=== PATIENT | male | born 1990 | race Caucasian/White ===

== ENCOUNTER 2020-04-30 11:52 | Outpatient (REF) | payer OTHER, SELFPAY | END 2020-04-30 11:53 | disposition home or self-care (01) | LOC: HO.LAB 11:52 | PROVIDERS: Visit Provider Internal Medicine | DX: Z20.822 Contact with and (suspected) exposure to COVID-19 (principal) | CPT/HCPCS: 36415; C9803; U0003; U0005 ==

== ENCOUNTER 2020-12-30 19:16 | Emergency (ER) | payer SELFPAY ==
[2020-12-30 19:47] VITALS: BP 143/87; PULSE 85; RESP 20; TEMP 36.8; O2SAT 100; BMI 32.1
== END 2020-12-30 20:37 | disposition left against medical advice (07) ==
PROVIDERS: Emergency Provider Emergency Medicine
DX: R10.9 Unspecified abdominal pain (principal)
CPT/HCPCS: 99281; 99282

== ENCOUNTER 2021-06-17 08:44 | Emergency (ER) | payer OTHER, SELFPAY ==
--- NOTE | ~2021-06-17 | CT_ITS ---
EXAMINATION: CT ABDOMEN AND PELVIS WITH CONTRAST CLINICAL INFORMATION: Diarrhea and abdominal pain COMPARISON: Bloody diarrhea and abdominal pain TECHNIQUE: Multidetector volumetric images were obtained from the superior aspect of the liver through the pubic symphysis following administration 85 mL of Omnipaque 350 intravenous contrast. Sagittal and coronal reformatted images were obtained on the technologist's workstation. Oral contrast: Yes This CT examination was performed using dose optimization techniques as appropriate, variously including the following: *Automated exposure control *Adjustment of mA and/or kV according to patient size (this includes techniques or standardized protocols for targeted exams where dose is matched to indication/reason for exam; i.e. extremities or head) *Use of iterative reconstruction technique DLP: 923 mGy-cm FINDINGS: LUNG BASES: The visualized lung bases are unremarkable. LIVER, GALLBLADDER, AND BILIARY TREE: The liver is slightly enlarged. The liver is low in attenuation suggestive of fatty. No focal liver lesion or biliary duct dilatation. The gallbladder is unremarkable with no evidence of radiopaque gallstones, gallbladder wall thickening, or obvious pericholecystic inflammatory changes. PANCREAS: Unremarkable. SPLEEN: Unremarkable. ADRENAL GLANDS: Unremarkable. KIDNEYS AND URETERS: Small bilateral renal cysts. Largest cyst measures 1 cm in the lower pole of the left kidney. No imaging follow-up needed. The kidneys are otherwise unremarkable. BLADDER: Unremarkable. GASTROINTESTINAL TRACT: The small and large bowel are unremarkable. The appendix is unremarkable. ABDOMINAL WALL: No significant hernia is appreciated. LYMPH NODES: Normal. VASCULAR: Unremarkable. PELVIC VISCERA: Unremarkable. OSSEOUS STRUCTURES: Unremarkable. There are small sclerotic densities in the bilateral acetabulum and left proximal femur. These probably represent small bone islands. CT/CT abdomen pelvis w con IMPRESSION: Enlarged fatty liver. Otherwise unremarkable exam. Fleischner guidelines were followed.
[2021-06-17 09:27] VITALS: BP 131/85; PULSE 91; RESP 18; TEMP 36.6; O2SAT 98; BMI 31.4
[2021-06-17 09:37] LABS: MANUAL DIFF FLAG NO
[2021-06-17 09:40] LABS: Basophils Percent Auto 0.1 % (0-2); Eosinophils Absolute Auto 0.1 X10*3/uL (0.0-0.4); Eosinophils Percent Auto 1.2 % (0-4); Hematocrit 52.2 % (42.0-52.0); Hemoglobin 17.2 g/dl (14.0-18.0); Imm Gran Abs Auto 0.02 X10*3/uL (0.00-0.03); Imm Gran Pct Auto 0.2 % (0.0-0.4); Lymphocytes Absolute Auto 1.2 X10*3/uL (1.2-4.9); Lymphocytes Percent Auto 14.7 % (20-40); Mean Corpuscular Hemoglobin 27.7 pg (27.0-33.0); Mean Corpuscular Volume 83.9 fL (80.0-98.0); Mean Platelet Volume 9.2 fL (9.4-12.4); Monocytes Absolute Auto 0.9 X10*3/uL (0.1-1.2); Monocytes Percent Auto 11.2 % (2-11); Neutrophils Percent Auto 72.6 % (45-73); Platelet Count 237 X10*3/uL (160-400); Red Blood Count 6.22 X10*6/uL (4.60-5.80); Red Cell Distribution Width 12.1 % (11.0-16.0); White Blood Count 8.3 X10*3/uL (4.8-10.8)
[2021-06-17 10:01] LABS: Alanine Aminotransferase 102 U/L (0-40); Albumin Level 4.7 g/dL (3.5-5.0); Alkaline Phosphatase 72 U/L (39-117); Anion Gap 16 (12-20); Aspartate Amino Transferase 31 U/L (5-37); Bilirubin Direct 0.3 mg/dL (0.0-0.5); Bilirubin Total 1.1 mg/dL (0.0-1.0); Blood Urea Nitrogen 16 mg/dL (9-16); Calcium 9.8 mg/dL (8.4-10.2); Carbon Dioxide 20 mmol/L (22-29); Chloride 106 mmol/L (96-108); Creatinine Clr Calc Pharmacy 121.6; Estimated Glomerular Filt Rate > 60; Glucose Random 145 mg/dL (60-115); Lipase 17 U/L (8-78); Potassium 4.6 mmol/L (3.3-5.1); Sodium 137 mmol/L (135-145); Total Protein 8.4 g/dL (6.5-8.0)
--- NOTE | 2021-06-17 14:49 | ED_ITS ---
HPI - Abdominal Pain General Chief Complaint: Abdominal Pain <Sonam Can ALEC Landrum - Last Filed: 06/17/21 17:57> Stated Complaint: Abd pain <Sonam Paulsonadrianne Landrum CNP - Last Filed: 06/17/21 17:57> Time Seen by Provider: 06/17/21 14:43 <Sonam Landrum CNP - Last Filed: 06/17/21 17:57> Source: patient <Sonam Can ALEC Landrum - Last Filed: 06/17/21 17:57> Mode of arrival: ambulatory <Sonam Can ALEC Landrum - Last Filed: 06/17/21 17:57> Limitations: no limitations <Sonam Can ALEC Landrum - Last Filed: 06/17/21 17:57> History of Present Illness HPI narrative: Patient presents to the emergency department for evaluation of diarrhea and abdominal pain. He reports that he began with diarrhea associated nausea and vomiting 2 nights ago. He does report eating [employer] earlier that day which he does not typically eat and did feel that it tasted ?bad?. Last night he developed diffuse abdominal pain which is worse on the right upper quadrant and epigastrium. He is having multiple bouts of diarrhea each day, has had at least 5 already today, noticed some bright red blood yesterday but today his ears are very dark and liquidy, black/green. Denies fevers, chills, no sick contacts, nasal congestion, sore throat, cough, shortness of breath, difficulty breathing, chest pain, palpitations, dysuria, testicular pain or swelling. <Sonam Landrum CNP - Last Filed: 06/17/21 17:57> Related Data Home Medications: Previous Rx's Medication Instructions Recorded dicyclomine 10 mg capsule 10 mg PO TID PRN #14 cap 06/17/21 omeprazole 20 mg capsule,delayed 20 mg PO DAILY #14 cap 06/17/21 release <Sonamamrit Landrum CNP - Last Filed: 06/17/21 17:57> Allergies/Adverse Reactions: Allergies Allergy/AdvReac Type Severity Reaction Status Date / Time No Known Allergies Allergy Verified 12/30/20 19:46 <Sonam Landrum CNP - Last Filed: 06/17/21 17:57> Review of Systems Review of Systems Constitutional : No Weight loss, No Fever, No Chills ENT/Mouth :? No sore throat, No Rhinorrhea Eyes: No Swelling, No Redness Cardiovascular : No Chest Pain, No SOB, No Edema Respiratory : No Cough, No Sputum, No Wheezing Gastrointestinal : Positive Nausea, Positive Vomiting, positive Diarrhea, positive abdominal pain, No Hematochezia, Positive Melena Genitourinary : No Dysuria, No Urinary Frequency, No Hematuria, No Urgency? Musculoskeletal : No joint pain, No Myalgias, No Joint Swelling Skin : No Skin Lesions, No rash Neuro : No Weakness, No Numbness, No Dizziness, No Headache Psych : No Anxiety/Panic, No Depression Heme/Lymph: No Bruising, No Lymphadenopathy Endocrine : No Polyuria, No Polydipsia <Sonam Landrum CNP - Last Filed: 06/17/21 17:57> Yes all other systems are reviewed and are negative <Sonam Landrum CNP - Last Filed: 06/17/21 17:57> [facility] Past Medical History Attestation statement: The following information was validated with the patient. <Sonam Landrum CNP - Last Filed: 06/17/21 17:57> Source: old records reviewed <Sonam Landrum CNP - Last Filed: 06/17/21 17:57> Medical History: Medical History No pertinent past medical history <Sonam Landrum CNP - Last Filed: 06/17/21 17:57> Social History Social History: Social History Advance Directives: No Advance Directives Information Provided: No <Sonam Landrum CNP - Last Filed: 06/17/21 17:57> Physical Exam ED Vital Signs: Vital Signs - 24 hr 06/17/21 09:27 06/17/21 15:23 06/17/21 17:40 Temperature 98 F 98.4 F Pulse Rate 91 90 89 Respiratory Rate 18 16 Blood Pressure 131/85 144/95 H 123/83 Pulse Oximetry 98 06/17/21 17:41 06/17/21 17:42 Temperature Pulse Rate 95 107 H Respiratory Rate Blood Pressure 117/78 102/81 Pulse Oximetry BMI result Body Mass Index 31.4 Vital signs have been reviewed as normal and appeared to be correct. Blood pre ssure normal.? Heart rate normal.? Respiration rate normal. Temperature normal.? Oxygen saturation normal. <Sonam Landrum CNP - Last Filed: 06/17/21 17:57> Vital Signs - 24 hr 06/17/21 09:27 06/17/21 15:23 06/17/21 17:40 Temperature 98 F 98.4 F Pulse Rate 91 90 89 Respiratory Rate 18 16 Blood Pressure 131/85 144/95 H 123/83 Pulse Oximetry 98 06/17/21 17:41 06/17/21 17:42 Temperature Pulse Rate 95 107 H Respiratory Rate Blood Pressure 117/78 102/81 Pulse Oximetry BMI result Body Mass Index 31.4 <Luis Oliver MD - Last Filed: 06/17/21 20:01> Appearance: Alert.?Oriented to person, place and time. No acute distr ess.?Normal affect. Eyes: Pupils equal, round and reactive to light.? ENT: Pharynx normal.?? Neck: Normal inspection.? Neck supple.?? CVS: Heart sounds normal. Normal heart rate and rhythm.? Pulses normal.?? Respiratory: No respiratory distress.? Lung sounds clear to auscultation bilaterally?? Abdomen: Soft with diffuse tenderness. Normoactive bowel sounds. No pulsatile mass.??Liquid diarrhea, black/green in color, sample provided Skin: Skin warm and dry.? Normal skin color.? Extremities: No lower extremity edema.? Neuro: Moves all extremities spontaneously. Sensation intact bilaterally. CN II- XII intact. No focal neuro deficits. Ambulates with normal steady gait. <Sonam Landrum CNP - Last Filed: 06/17/21 17:57> Course Course Course Narrative: Patient is a 30-year-old male with no significant past medical history presenting for evaluation of abdominal common with diarrhea x2 days. Stool sample provided during exam noted to be occult positive, no bright red blood, will send for stool interested WBC, and obtain CT of the abdomen to evaluate for colitis, diverticulitis, or alternative intra abdominal pathology for symptoms. CBC to evaluate for leukocytosis, anemia, CMP and lipase, COVID-19 and influenza testing, reports pain to be tolerable at this time, declines any pain medication or antiemetics. He is overall well appearing, afebrile, no tachycardia, and in no apparent distress. <Sonam Landrum CNP - Last Filed: 06/17/21 17:57> Reevaluation(s) Reevaluation #1: CBC reveals no leukocytosis or anemia. BMP is overall unremarkable. AST normal at 31 however ALT elevated at 102, likely fatty liver. Occult stool positive, patient denies any known ulcers, GERD, history of NSAID usage routinely, use Pepto-Bismol only once, no family history of colon cancer, does not routinely drink alcohol, repeat exam at this time reveals stools that are green in color. CT of the abdomen reveals an enlarged fatty liver otherwise unremarkable. Small and large bowel are unremarkable. Unlikely colitis, diverticulitis. Orthostatic VS are positive. Will obtain repeat CBC. Suspect that the bleeding noted in the stools likely secondary to information. Discussed this case with ED attending Dr. Oliver, patient signed out pending repeat CBC and as hemoglobin hematocrit are stable the patient will be appropriate for discharge home with PPI, omeprazole and Bentyl for abdominal cramping as needed. <Sonam Landrum CNP - Last Filed: 06/17/21 17:57> Time: 17:48 <Sonam Landrum CNP - Last Filed: 06/17/21 17:57> MDM - Abdominal Pain MDM Narrative Medical decision making narrative: Patient will be seen and evaluated had dark green stool multiple times patient stool was guaiac positive likely from the bile H&H repeat was normal no history of peptic ulcer disease will discharge patient home <Luis Oliver MD - Last Filed: 06/17/21 20:01> Lab Data Attestation: I reviewed the patient's lab results. <Luis Oliver MD - Last Filed: 06/17/21 20:01> Result diagrams: : 06/17/21 18:39 06/17/21 09:34 <Sonam Landrum CNP - Last Filed: 06/17/21 17:57> Labs: Lab Results 06/17/21 06/17/21 06/17/21 Range/Units 09:34 09:34 15:12 WBC 8.3 (4.8-10.8) X10*3/uL RBC 6.22 H (4.60-5.80) X10*6/uL Hgb 17.2 (14.0-18.0) g/dl Hct 52.2 H (42.0-52.0) % MCV 83.9 (80.0-98.0) fL MCH 27.7 (27.0-33.0) pg MCHC 33.0 (31.0-36.0) g/dl RDW 12.1 (11.0-16.0) % Plt Count 237 (160-400) X10*3/uL MPV 9.2 L (9.4-12.4) fL Immature Gran % (Auto) 0.2 (0.0-0.4) % Neut % (Auto) 72.6 (45-73) % Lymph % (Auto) 14.7 L (20-40) % Kendall % (Auto) 11.2 H (2-11) % Eos % (Auto) 1.2 (0-4) % Baso % (Auto) 0.1 (0-2) % Lymph # (Auto) 1.2 (1.2-4.9) X10*3/uL [place] # (Auto) 0.9 (0.1-1.2) X10*3/uL Eos # (Auto) 0.1 (0.0-0.4) X10*3/uL Baso # (Auto) 0.0 (0.0-0.2) X10*3/uL Abs Immat Gran (auto) 0.02 (0.00-0.03) X10*3/uL Absolute Neuts (auto) 6.0 (2.0-8.3) x10*3/uL Absolute Nucleated RBC 0.000 (0.0-0.012) X10*3/uL Nucleated RBC % (auto) 0.0 (0.0-0.2) /100WBC Smear Tech's Comments Sodium 137 (135-145) mmol/L Potassium 4.6 (3.3-5.1) mmol/L Chloride 106 (96-108) mmol/L Carbon Dioxide 20 L (22-29) mmol/L Anion Gap 16 (12-20) BUN 16 (9-16) mg/dL Creatinine 1.07 (0.5-1.4) mg/dL Estim Creat Clear Calc 121.6 Estimated GFR > 60 Random Glucose 145 H (60-115) mg/dL Calcium 9.8 (8.4-10.2) mg/dL Total Bilirubin 1.1 H (0.0-1.0) mg/dL Direct Bilirubin 0.3 (0.0-0.5) mg/dL AST 31 (5-37) U/L ALT 102 H (0-40) U/L Alkaline Phosphatase 72 (39-117) U/L Total Protein 8.4 H (6.5-8.0) g/dL Albumin 4.7 (3.5-5.0) g/dL Lipase 17 (8-78) U/L Urine Color Urine Appearance Urine pH (5.0-8.0) Ur Specific [place] (1.005-1.025) Urine Protein (NEG-TRACE) MG/DL Urine Glucose (UA) (NEG) MG/DL Urine Ketones (NEG) MG/DL Urine Blood (NEG) Urine Nitrite (NEG) Ur Leukocyte Esterase (NEG) Urine RBC (0) /HPF Urine WBC (0-4) /HPF Ur Squamous Epith Cells /LPF Urine Bacteria /LPF Urine Mucus /LPF Stool Occult Blood (NEGATIVE) Stool Leukocytes, Qual (NEGATIVE) COVID-19 (ROSEANN) (Negative) COVID-19 Clin Com Influenza Type A (LAKISHA) Negative (Negative) Influenza Type B (LAK[facility]HA) Negative (Negative) Influenza A & B Note See Note 06/17/21 06/17/21 06/17/21 Range/Units 15:12 15:23 15:23 WBC (4.8-10.8) X10*3/uL RBC (4.60-5.80) X10*6/uL Hgb (14.0-18.0) g/dl Hct (42.0-52.0) % MCV (80.0-98.0) fL MCH (27.0-33.0) pg MCHC (31.0-36.0) g/dl RDW (11.0-16.0) % Plt Count (160-400) X10*3/uL MPV (9.4-12.4) fL Immature Gran % (Auto) (0.0-0.4) % Neut % (Auto) (45-73) % Lymph % (Auto) (20-40) % Kendall % (Auto) (2-11) % Eos % (Auto) (0-4) % Baso % (Auto) (0-2) % Lymph # (Auto) (1.2-4.9) X10*3/uL [place] # (Auto) (0.1-1.2) X10*3/uL Eos # (Auto) (0.0-0.4) X10*3/uL Baso # (Auto) (0.0-0.2) X10*3/uL Abs Immat Gran (auto) (0.00-0.03) X10*3/uL Absolute Neuts (auto) (2.0-8.3) x10*3/uL Absolute Nucleated RBC (0.0-0.012) X10*3/uL Nucleated RBC % (auto) (0.0-0.2) /100WBC Smear Tech's Comments Sodium (135-145) mmol/L Potassium (3.3-5.1) mmol/L Chloride (96-108) mmol/L Carbon Dioxide (22-29) mmol/L Anion Gap (12-20) BUN (9-16) mg/dL Creatinine (0.5-1.4) mg/dL Estim Creat Clear Calc Estimated GFR Random Glucose (60-115) mg/dL Calcium (8.4-10.2) mg/dL Total Bilirubin (0.0-1.0) mg/dL Direct Bilirubin (0.0-0.5) mg/dL AST (5-37) U/L ALT (0-40) U/L Alkaline Phosphatase (39-117) U/L Total Protein (6.5-8.0) g/dL Albumin (3.5-5.0) g/dL Lipase (8-78) U/L Urine Color Urine Appearance Urine pH (5.0-8.0) Ur Specific [place] (1.005-1.025) Urine Protein (NEG-TRACE) MG/DL Urine Glucose (UA) (NEG) MG/DL Urine Ketones (NEG) MG/DL Urine Blood (NEG) Urine Nitrite (NEG) Ur Leukocyte Esterase (NEG) Urine RBC (0) /HPF Urine WBC (0-4) /HPF Ur Squamous Epith Cells /LPF Urine Bacteria /LPF Urine Mucus /LPF Stool Occult Blood POSITIVE (NEGATIVE) Stool Leukocytes, Qual FEW: < 2/OIF (NEGATIVE) COVID-19 (ROSEANN) Negative (Negative) COVID-19 Clin Com See Note Influenza Type A ([facility]HA) (Negative) Influenza Type B ([facility]HA) (Negative) Influenza A & B Note 06/17/21 06/17/21 Range/Units 15:29 18:39 WBC 7.5 (4.8-10.8) X10*3/uL RBC 6.13 H (4.60-5.80) X10*6/uL Hgb 17.2 (14.0-18.0) g/dl Hct 51.6 (42.0-52.0) % MCV 84.2 (80.0-98.0) fL MCH 28.1 (27.0-33.0) pg MCHC 33.3 (31.0-36.0) g/dl RDW 12.3 (11.0-16.0) % Plt Count 162 D (160-400) X10*3/uL MPV 9.8 (9.4-12.4) fL Immature Gran % (Auto) 0.3 (0.0-0.4) % Neut % (Auto) 60.2 (45-73) % Lymph % (Auto) 24.3 (20-40) % Kendall % (Auto) 11.7 H (2-11) % Eos % (Auto) 3.1 (0-4) % Baso % (Auto) 0.4 (0-2) % Lymph # (Auto) 1.8 (1.2-4.9) X10*3/uL [place] # (Auto) 0.9 (0.1-1.2) X10*3/uL Eos # (Auto) 0.2 (0.0-0.4) X10*3/uL Baso # (Auto) 0.0 (0.0-0.2) X10*3/uL Abs Immat Gran (auto) 0.02 (0.00-0.03) X10*3/uL Absolute Neuts (auto) 4.5 (2.0-8.3) x10*3/uL Absolute Nucleated RBC 0.000 (0.0-0.012) X10*3/uL Nucleated RBC % (auto) 0.0 (0.0-0.2) /100WBC Smear Tech's Comments VERIFIED Sodium (135-145) mmol/L Potassium (3.3-5.1) mmol/L Chloride (96-108) mmol/L Carbon Dioxide (22-29) mmol/L Anion Gap (12-20) BUN (9-16) mg/dL Creatinine (0.5-1.4) mg/dL Estim Creat Clear Calc Estimated GFR Random Glucose (60-115) mg/dL Calcium (8.4-10.2) mg/dL Total Bilirubin (0.0-1.0) mg/dL Direct Bilirubin (0.0-0.5) mg/dL AST (5-37) U/L ALT (0-40) U/L Alkaline Phosphatase (39-117) U/L Total Protein (6.5-8.0) g/dL Albumin (3.5-5.0) g/dL Lipase (8-78) U/L Urine Color YELLOW Urine Appearance CLEAR Urine pH 6.0 (5.0-8.0) Ur Specific [place] >= 1.030 H (1.005-1.025) Urine Protein 1+ H (NEG-TRACE) MG/DL Urine Glucose (UA) NEG (NEG) MG/DL Urine Ketones NEG (NEG) MG/DL Urine Blood NEG (NEG) Urine Nitrite NEG (NEG) Ur Leukocyte Esterase NEG (NEG) Urine RBC 0 (0) /HPF Urine WBC 0 (0-4) /HPF Ur Squamous Epith Cells NONE /LPF Urine Bacteria 1+ /LPF Urine Mucus 1+ /LPF Stool Occult Blood (NEGATIVE) Stool Leukocytes, Qual (NEGATIVE) COVID-19 (ROSEANN) (Negative) COVID-19 Clin Com Influenza Type A ([facility]HA) (Negative) Influenza Type B ([facility]HA) (Negative) Influenza A & B Note <Sonam Landrum, [employer] FIN[employer]ER - Last Filed: 06/17/21 17:57> Lab Results 06/17/21 06/17/21 06/17/21 Range/Units 09:34 09:34 15:12 WBC 8.3 (4.8-10.8) X10*3/uL RBC 6.22 H (4.60-5.80) X10*6/uL Hgb 17.2 (14.0-18.0) g/dl Hct 52.2 H (42.0-52.0) % MCV 83.9 (80.0-98.0) fL MCH 27.7 (27.0-33.0) pg MCHC 33.0 (31.0-36.0) g/dl RDW 12.1 (11.0-16.0) % Plt Count 237 (160-400) X10*3/uL MPV 9.2 L (9.4-12.4) fL Immature Gran % (Auto) 0.2 (0.0-0.4) % Neut % (Auto) 72.6 (45-73) % Lymph % (Auto) 14.7 L (20-40) % Kendall % (Auto) 11.2 H (2-11) % Eos % (Auto) 1.2 (0-4) % Baso % (Auto) 0.1 (0-2) % Lymph # (Auto) 1.2 (1.2-4.9) X10*3/uL [place] # (Auto) 0.9 (0.1-1.2) X10*3/uL Eos # (Auto) 0.1 (0.0-0.4) X10*3/uL Baso # (Auto) 0.0 (0.0-0.2) X10*3/uL Abs Immat Gran (auto) 0.02 (0.00-0.03) X10*3/uL Absolute Neuts (auto) 6.0 (2.0-8.3) x10*3/uL Absolute Nucleated RBC 0.000 (0.0-0.012) X10*3/uL Nucleated RBC % (auto) 0.0 (0.0-0.2) /100WBC Smear Tech's Comments Sodium 137 (135-145) mmol/L Potassium 4.6 (3.3-5.1) mmol/L Chloride 106 (96-108) mmol/L Carbon Dioxide 20 L (22-29) mmol/L Anion Gap 16 (12-20) BUN 16 (9-16) mg/dL Creatinine 1.07 (0.5-1.4) mg/dL Estim Creat Clear Calc 121.6 Estimated GFR > 60 Random Glucose 145 H (60-115) mg/dL Calcium 9.8 (8.4-10.2) mg/dL Total Bilirubin 1.1 H (0.0-1.0) mg/dL Direct Bilirubin 0.3 (0.0-0.5) mg/dL AST 31 (5-37) U/L ALT 102 H (0-40) U/L Alkaline Phosphatase 72 (39-117) U/L Total Protein 8.4 H (6.5-8.0) g/dL Albumin 4.7 (3.5-5.0) g/dL Lipase 17 (8-78) U/L Urine Color Urine Appearance Urine pH (5.0-8.0) Ur Specific [place] (1.005-1.025) Urine Protein (NEG-TRACE) MG/DL Urine Glucose (UA) (NEG) MG/DL Urine Ketones (NEG) MG/DL Urine Blood (NEG) Urine Nitrite (NEG) Ur Leukocyte Esterase (NEG) Urine RBC (0) /HPF Urine WBC (0-4) /HPF Ur Squamous Epith Cells /LPF Urine Bacteria /LPF Urine Mucus /LPF Stool Occult Blood (NEGATIVE) Stool Leukocytes, Qual (NEGATIVE) COVID-19 (ROSEANN) (Negative) COVID-19 Clin Com Influenza Type A ([facility]HA) Negative (Negative) Influenza Type B ([facility]) Negative (Negative) Influenza A & B Note See Note 06/17/21 06/17/21 06/17/21 Range/Units 15:12 15:23 15:23 WBC (4.8-10.8) X10*3/uL RBC (4.60-5.80) X10*6/uL Hgb (14.0-18.0) g/dl Hct (42.0-52.0) % MCV (80.0-98.0) fL MCH (27.0-33.0) pg MCHC (31.0-36.0) g/dl RDW (11.0-16.0) % Plt Count (160-400) X10*3/uL MPV (9.4-12.4) fL Immature Gran % (Auto) (0.0-0.4) % Neut % (Auto) (45-73) % Lymph % (Auto) (20-40) % Kend[place] % (Auto) (2-11) % Eos % (Auto) (0-4) % Baso % (Auto) (0-2) % Lymph # (Auto) (1.2-4.9) X10*3/uL [place] # (Auto) (0.1-1.2) X10*3/uL Eos # (Auto) (0.0-0.4) X10*3/uL Baso # (Auto) (0.0-0.2) X10*3/uL Abs Immat Gran (auto) (0.00-0.03) X10*3/uL Absolute Neuts (auto) (2.0-8.3) x10*3/uL Absolute Nucleated RBC (0.0-0.012) X10*3/uL Nucleated RBC % (auto) (0.0-0.2) /100WBC Smear Tech's Comments Sodium (135-145) mmol/L Potassium (3.3-5.1) mmol/L Chloride (96-108) mmol/L Carbon Dioxide (22-29) mmol/L Anion Gap (12-20) BUN (9-16) mg/dL Creatinine (0.5-1.4) mg/dL Estim Creat Clear Calc Estimated GFR Random Glucose (60-115) mg/dL Calcium (8.4-10.2) mg/dL Total Bilirubin (0.0-1.0) mg/dL Direct Bilirubin (0.0-0.5) mg/dL AST (5-37) U/L ALT (0-40) U/L Alkaline Phosphatase (39-117) U/L Total Protein (6.5-8.0) g/dL Albumin (3.5-5.0) g/dL Lipase (8-78) U/L Urine Color Urine Appearance Urine pH (5.0-8.0) Ur Specific [place] (1.005-1.025) Urine Protein (NEG-TRACE) MG/DL Urine Glucose (UA) (NEG) MG/DL Urine Ketones (NEG) MG/DL Urine Blood (NEG) Urine Nitrite (NEG) Ur Leukocyte Esterase (NEG) Urine RBC (0) /HPF Urine WBC (0-4) /HPF Ur Squamous Epith Cells /LPF Urine Bacteria /LPF Urine Mucus /LPF Stool Occult Blood POSITIVE (NEGATIVE) Stool Leukocytes, Qual FEW: < 2/OIF (NEGATIVE) COVID-19 (ROSEANN) Negative (Negative) COVID-19 Clin Com See Note Influenza Type A ([facility]HA) (Negative) Influenza Type B ([facility]) (Negative) Influenza A & B Note 06/17/21 06/17/21 Range/Units 15:29 18:39 WBC 7.5 (4.8-10.8) X10*3/uL RBC 6.13 H (4.60-5.80) X10*6/uL Hgb 17.2 (14.0-18.0) g/dl Hct 51.6 (42.0-52.0) % MCV 84.2 (80.0-98.0) fL MCH 28.1 (27.0-33.0) pg MCHC 33.3 (31.0-36.0) g/dl RDW 12.3 (11.0-16.0) % Plt Count 162 D (160-400) X10*3/uL MPV 9.8 (9.4-12.4) fL Immature Gran % (Auto) 0.3 (0.0-0.4) % Neut % (Auto) 60.2 (45-73) % Lymph % (Auto) 24.3 (20-40) % [place] % (Auto) 11.7 H (2-11) % Eos % (Auto) 3.1 (0-4) % Baso % (Auto) 0.4 (0-2) % Lymph # (Auto) 1.8 (1.2-4.9) X10*3/uL [place] # (Auto) 0.9 (0.1-1.2) X10*3/uL Eos # (Auto) 0.2 (0.0-0.4) X10*3/uL Baso # (Auto) 0.0 (0.0-0.2) X10*3/uL Abs Immat Gran (auto) 0.02 (0.00-0.03) X10*3/uL Absolute Neuts (auto) 4.5 (2.0-8.3) x10*3/uL Absolute Nucleated RBC 0.000 (0.0-0.012) X10*3/uL Nucleated RBC % (auto) 0.0 (0.0-0.2) /100WBC Smear Tech's Comments VERIFIED Sodium (135-145) mmol/L Potassium (3.3-5.1) mmol/L Chloride (96-108) mmol/L Carbon Dioxide (22-29) mmol/L Anion Gap (12-20) BUN (9-16) mg/dL Creatinine (0.5-1.4) mg/dL Estim Creat Clear Calc Estimated GFR Random Glucose (60-115) mg/dL Calcium (8.4-10.2) mg/dL Total Bilirubin (0.0-1.0) mg/dL Direct Bilirubin (0.0-0.5) mg/dL AST (5-37) U/L ALT (0-40) U/L Alkaline Phosphatase (39-117) U/L Total Protein (6.5-8.0) g/dL Albumin (3.5-5.0) g/dL Lipase (8-78) U/L Urine Color YELLOW Urine Appearance CLEAR Urine pH 6.0 (5.0-8.0) Ur Specific [place] >= 1.030 H (1.005-1.025) Urine Protein 1+ H (NEG-TRACE) MG/DL Urine Glucose (UA) NEG (NEG) MG/DL Urine Ketones NEG (NEG) MG/DL Urine Blood NEG (NEG) Urine Nitrite NEG (NEG) Ur Leukocyte Esterase NEG (NEG) Urine RBC 0 (0) /HPF Urine WBC 0 (0-4) /HPF Ur Squamous Epith Cells NONE /LPF Urine Bacteria 1+ /LPF Urine Mucus 1+ /LPF Stool Occult Blood (NEGATIVE) Stool Leukocytes, Qual (NEGATIVE) COVID-19 ([facility]) (Negative) COVID-19 Clin Com Influenza Type A ([facility]) (Negative) Influenza Type B ([facility]) (Negative) Influenza A & B Note <Luis Oliver MD - Last Filed: 06/17/21 20:01> Discharge Plan Discharge Clinical Impression: Diarrhea <Sonam Landrum CNP - Last Filed: 06/17/21 17:57> Patient Disposition: Home, Self-Care <Sonam Landrum CNP - Last Filed: 06/17/21 17:57> Instructions: Acute Diarrhea (ED) <Sonam Landrum CNP - Last Filed: 06/17/21 17:57> Additional Instructions: Take Prilosec once daily as prescribed, Bentyl as needed for abdominal pain. Please follow-up with her primary care provider within 1-3 days. Return to the emergency department with any new or worsening symptoms or concerns. If you continue to have really dark black stools, they are sticky, if you're feeling lightheaded or dizziness, having chest pain shortness of breath please return back to the emergency department. <Sonam Landrum CNP - Last Filed: 06/17/21 17:57> Prescriptions: New omeprazole 20 mg capsule,delayed release(DR/EC) 20 mg PO DAILY Qty: 14 0RF dicyclomine 10 mg capsule 10 mg PO TID PRN (Reason: abdominal pain) Qty: 14 0RF <Sonam Landrum CNP - Last Filed: 06/17/21 17:57> Interventions: ED Discharge Assessment Last Done: 06/17/21 19:59 <Sonam Landrum CNP - Last Filed: 06/17/21 17:57>
[2021-06-17 15:23] VITALS: BP 144/95; PULSE 90; RESP 16; TEMP 36.9
[2021-06-17 15:34] LABS: COVID-19 Test Negative (Negative); IDNOW Serial# 16C4AD1C; Influenza A Negative (Negative); Influenza B2 Negative (Negative)
[2021-06-17 15:42] LABS: OBS Int Ctl Valid YES; OBS1 POSITIVE (NEGATIVE)
[2021-06-17 15:46] LABS: Appearance Urine CLEAR; Color Urine YELLOW; Glucose Urine UA NEG (NEG); Leukocyte Esterase Urine NEG (NEG); Nitrite Urine NEG (NEG); Specific Gravity - Urine >= 1.030 (1.005-1.025); UACC Culture Trigger NO; Urine Blood NEG (NEG); Urine Ketones NEG (NEG); Urine Protein 1+ MG/DL (NEG-TRACE)
[2021-06-17] MEDS: iohexoL 350 MG/ML 100 ML INFUS..BTL IV (15:51)
[2021-06-17 15:54] LABS: Bacteria Urine 1+ /LPF; Mucus Urine 1+ /LPF; RBC Urine 0 /HPF (0); WBC Urine 0 /HPF (0-4)
[2021-06-17 17:40] VITALS: BP 123/83; PULSE 89
[2021-06-17 17:41] VITALS: BP 117/78; PULSE 95
[2021-06-17 17:42] VITALS: BP 102/81; PULSE 107
[2021-06-17] MEDS: Dicyclomine HCl 10 MG CAPSULE PO (18:14)
[2021-06-17] MEDS: Omeprazole 20 MG CAPSULE.DR PO (18:14)
[2021-06-17 18:21] LABS: Leukocytes Stool Qualitative FEW: < 2/OIF (NEGATIVE)
[2021-06-17 18:44] LABS: Eosinophils Absolute Auto 0.2 X10*3/uL (0.0-0.4); Eosinophils Percent Auto 3.1 % (0-4); Hemoglobin 17.2 g/dl (14.0-18.0); Imm Gran Abs Auto 0.02 X10*3/uL (0.00-0.03); Imm Gran Pct Auto 0.3 % (0.0-0.4); MANUAL DIFF FLAG SCAN; PLT CLUMP 1; Red Cell Distribution Width 12.3 % (11.0-16.0); SCAN SMEAR FLAG 1
[2021-06-17 18:45] LABS: Basophils Percent Auto 0.4 % (0-2); Hematocrit 51.6 % (42.0-52.0); Lymphocytes Absolute Auto 1.8 X10*3/uL (1.2-4.9); Lymphocytes Percent Auto 24.3 % (20-40); Mean Corpuscular HGB Conc 33.3 g/dl (31.0-36.0); Mean Corpuscular Hemoglobin 28.1 pg (27.0-33.0); Mean Corpuscular Volume 84.2 fL (80.0-98.0); Monocytes Absolute Auto 0.9 X10*3/uL (0.1-1.2); Monocytes Percent Auto 11.7 % (2-11); Neutrophils Absolute Auto 4.5 x10*3/uL (2.0-8.3); Neutrophils Percent Auto 60.2 % (45-73); Red Blood Count 6.13 X10*6/uL (4.60-5.80)
[2021-06-17 18:51] LABS: White Blood Count 7.5 X10*3/uL (4.8-10.8)
[2021-06-17] MEDS: 0.9 % Sodium Chloride 1,000 ML 999 ML IV (18:55)
[2021-06-17 19:06] LABS: Mean Platelet Volume 9.8 fL (9.4-12.4); Platelet Count 162 X10*3/uL (160-400)
[2021-06-17 19:07] LABS: SLIDE REVIEW VERIFIED
== END 2021-06-17 20:06 | disposition home or self-care (01) ==
PROVIDERS: Emergency Medicine; Nurse Practitioner Family; Emergency Provider Internal Medicine
DX: R10.11 Right upper quadrant pain (principal); R19.7 Diarrhea, unspecified; Z79.899 Other long term (current) drug therapy; Z20.822 Contact with and (suspected) exposure to COVID-19
CPT/HCPCS: 36415; 74177; 80048; 80076; 81001; 82272; 83690; 85025; 87045; 87046; 87502; 87635; 89055; 96360; 99284; Q9967